=== PATIENT | female | born 1960 | race Caucasian/White ===

== ENCOUNTER 2016-12-08 20:00 | Inpatient (IN) ==
[2016-12-08] MEDS ORDERED: MORPHINE IM ONE (20:27)
[2016-12-08] MEDS ORDERED: ZOFRAN ODT PO ONE (20:27)
[2016-12-08] MEDS ORDERED: MOTRIN PO ONE (20:28)
--- NOTE | 2016-12-08 20:32 | PROVIDER DOCUMENTATION ---
HPI-Abdominal Pain/GI Problem - General Chief Complaint: UTI Symptoms Stated Complaint: ABD PAIN, V/D Time Seen by Provider: 12/08/16 20:23 Source: patient Allergies/Adverse Reactions: Patient Allergies Allergy/AdvReac Type Severity Reaction Status Date / Time hydrocodone bitartrate * Allergy Mild HIVES Verified 12/08/16 21:03 [From Lortab] Home Medications: Home Medication List Medication Instructions Recorded Confirmed Last Taken Type Aspirin 325 mg PO DAILY 10/28/12 12/09/16 12/08/16 09:00 History Omeprazole [Prilosec] 20 mg PO DAILY@0700 10/28/12 12/09/16 12/08/16 09:00 History Levofloxacin [Levaquin] 500 mg PO DAILY #15 tablet 12/18/16 Unknown Rx - History of Present Illness-ABD Nature of Presenting Problems: 56 y/o Wf c/o abdominal pain, that feels severe to her "I would rather be shot and put down right now than feel this way." Reports a fever of 104F that began at 1600. pain began at around 1000 today and has increased in intensity. It will be in the suprapubic region, radiates to the back, associated with nasuea and vomiting. No changes in BM. Tried AZOs otc without relief. Review of Systems - Adult - REVIEW OF SYSTEMS - ADULT Constitutional: reports: see HPI, chills, fever, fatique Eyes: reports: no symptoms reported. denies: decreased vision, blurred vision, double vision, eye pain Ears, Nose, Mouth & Throat: reports: no symptoms reported. denies: ear pain, nose pain, throat pain Cardiovascular: reports: no symptoms reported. denies: chest pain, irregular heart rate, palpitations Respiratory: reports: no symptoms reported. denies: cough, shortness of breath , wheezing Gastrointestinal: reports: see HPI, abdominal pain, nausea, vomiting Genitourinary: reports: see HPI, dysuria, frequency. denies: discharge, flank pain, hesitency, urgency Musculoskeletal: reports: see HPI, back pain. denies: bone pain, muscle aches Integumentary: reports: no symptoms reported. denies: rash Neurological: reports: no symptoms reported. denies: headache/migraines Psychiatric: reports: no symptoms reported Endocrine: reports: no symptoms reported Hematologic/Lymphatic: reports: no symptoms reported Allergic/Immunologic: reports: no symptoms reported All Other Systems: Reviewed and Negative Past History - Adult - PAST MEDICAL HISTORY-ADULT Review of Records: reports: Old Records Reviewed, Nursing Assessment Review, Medications Reviewed, Social history reviewed & non-contributory. Major Childhood Illnesses: reports: denies history Cardiovascular: reports: denies history Respiratory: reports: denies history Gastrointestinal: reports: denies history Obstetrical/Gynecological: reports: denies history Genitourinary: reports: denies history Musculoskeletal: reports: denies history Neurological: reports: denies history Endocrine/Immune: reports: denies history Other Conditions: reports: denies history - IMMUNIZATION STATUS Childhood Immunizations: See Nurse Assessment Flu Vaccine: See Nurse Assessment - FAMILY HISTORY Family History: reviewed, not pertinent Physical Exam-General - PHYSICAL EXAM-ADULT Initial Vital Signs Reviewed: Yes - CONSTITUTIONAL General Appearance: appears well, alert, no apparent distress - EYES Eyes: PERRL/EOMI, pink conjunctivae - HEAD, EARS, NOSE, MOUTH & THROAT HENMT: normocephalic/atraumatic, moist mucous membranes, normal ENT inspection - NECK Neck: non-tender, full range of motion, supple, normal inspection - RESPIRATORY Respiratory: chest non-tender, lungs clear, normal breath sounds, no pleuratic chest pain, no respiratory distress, no accessory muscle use. negative: respiratory distress, decreased breath sounds, accessory muscle use, crackles, rales, rhonchi, wheezing - CARDIOVASCULAR Cardiovascular: normal peripheral pulses, regular rate, rhythm - GASTROINTESTINAL (ABDOMEN) Abdominal Exam: normal bowel sounds, soft, no organomegaly, no pulsatile mass, tenderness. negative: abdominal bruit, abnormal bowel sounds, distended, guarding, rigid, rebound - LYMPHATIC Lymphatic: no adenopathy - MUSCULOSKELETAL Back Exam: normal inspection, no CVA tenderness, no vertebral tenderness. negative: CVA tenderness Extremity: normal range of motion, non-tender - SKIN Integumentary: normal color, normal turgor, warm/dry - NEUROLOGIC Neurologic: grossly normal, no motor/sensory deficits - PSYCHIATRIC Psych/Mental Status: normal mood/affect, normal thought content, normal thought process, oriented x 3 Progress - PLAN OF CARE/RESULTS Progress/Plan/Lab Results: Vital Signs - 8 hr 12/08/16 20:11 Temperature 99.4 F Pulse Rate 105 H Respiratory Rate 18 Blood Pressure 153/78 O2 Sat by Pulse Oximetry 100 Orders Category Date Time Status AMYLASE [CHEM] Stat Lab 12/08/16 20:26 Uncollected CBC WITH ELECTRONIC DIFF [HEME] Stat Lab 12/08/16 20:26 Uncollected COMPREHENSIVE METABOLIC PANEL [CHEM] Stat Lab 12/08/16 20:26 Uncollected LIPASE [CHEM] Stat Lab 12/08/16 20:26 Uncollected UA NIMS W/REFLEX CULT [URINALYSIS] Stat Lab 12/08/16 20:26 Uncollected URINE DRUG SCREEN Stat Lab 12/08/16 20:26 Uncollected Result Diagrams: 12/19/16 05:17 12/18/16 05:29 - CHANGE OF SHIFT REPORT (ED Provider) Report Given and Care Transferred to:: Dr. Prince MD Time of Transfer: 20:47 Items Pending: Labs Comment: stable Departure - Departure Time of Disposition Decision: 00:40 DIAGNOSIS: Perforated abdominal viscus Disposition: ADMITTED INPATIENT 09 Certified Medical Emergency: Emergent Condition: Stable - Critical Care Note This patient required my direct & personal management of CC.: Yes Total Time (mins): 30 Critical Care Statement: This patient required my direct personal management to treat or rule out processes, the absence of which, could potentiallly result in sudden, clinically significant life or limb threatening deterioration. Attestation - Physician/ CHARLES Attestation Patient care was provided by Advanced Practice Provider:: Yes Advanced Practice Provider:: Rosemary Rodriguez Advanced Practice Provider documentation review:: The Mid-level provider documentation, treatment plan and medical decision making was reviewed by the physician who agrees with all treatment and medical decision making by the [facility].
[2016-12-08 20:48] LABS: URINE CULTURE NEEDED? NO; URINE MICRO REVIEW NEEDED? NO; URINE SOURCE CLEAN CATCH
[2016-12-08 20:50] LABS: BILIRUBIN URINE NEGATIVE (NEGATIVE); BLOOD URINE SMALL (NEGATIVE); COLOR YELLOW; GLUCOSE URINE NEGATIVE (NEGATIVE); LEUKOCYTES URINE NEGATIVE (NEGATIVE); NITRITE URINE NEGATIVE (NEGATIVE); PROTEIN URINE TRACE mg/dL (NEGATIVE); SP GRAVITY URINE 1.022; TURBIDITY URINE HAZY (CLEAR); UROBILINOGEN URINE NORMAL (NORMAL)
[2016-12-08 20:51] LABS: UR EPITHELIAL CELLS <10 /HPF (<10); URINE BACTERIA NEGATIVE /HPF; URINE RBC <10 /HPF (<10); URINE WBC <10 /HPF (<10)
[2016-12-08 21:01] LABS: UR AMPHETAMINES QUAL NONE DETECTED (NONE DETECT); UR BARBITUATES QUAL NONE DETECTED (NONE DETECT); UR BENZODIAZEPIN QUAL NONE DETECTED (NONE DETECT); UR CANNABINOIDS QUAL NONE DETECTED (NONE DETECT); UR COCAINE QUAL NONE DETECTED (NONE DETECT); UR METHADONE QUAL NONE DETECTED (NONE DETECT); UR OPIATES QUAL NONE DETECTED (NONE DETECT); UR OXYCODONE QUAL NONE DETECTED (NONE DETECT); UR PCP QUAL NONE DETECTED (NONE DETECT)
[2016-12-08 22:14] LABS: BASO% 0.1 % (0.0-0.8); HEMATOCRIT 41.8 % (37.0-47.0); HEMOGLOBIN 13.8 g/dL (12.0-16.0); LYMPH# 0.97 X1000 (1.2-3.4); LYMPH% 3.3 % (20.5-51.1); MANUAL DIFF NEEDED? NO; MCH 30.1 PG (27-31); MCV 91.1 FL (81-99); MONO# 1.49 X1000 (0.11-0.59); MPV 10.9 FL (7.4-10.4); NEUT% 91.6 % (42.2-75.2); PLT 256 X1000 (130-400); RBC 4.59 XMIL (4.2-5.4)
[2016-12-08 22:27] LABS: AGAP 18; ALKALINE PHOSPHATASE 106 U/L (32-104); AMYLASE 48 U/L (20-200); BUN 12 mg/dL (8-22); CALCIUM 8.9 mg/dL (8.8-10.2); CHLORIDE 100 mmol/L (98-107); COSMO 276; GOT 20 U/L (10-30); GPT 13 U/L (10-36); POTASSIUM 4.2 mmol/L (3.5-5.1); SODIUM 138 mmol/L (136-145); TCO2 20 mmol/L (25-35); TOTAL BILIRUBIN 0.97 mg/dL (0.20-1.00); TOTAL PROTEIN 7.5 g/dL (6.3-8.3)
[2016-12-08] MEDS ORDERED: FLAGYL 500 MG/NS 500 MG/100 ML IVPB IV ONE (22:52)
[2016-12-08] MEDS ORDERED: ZOSYN 3.375 GM/NS 3.375 GM/50 ML IVPB IV ONE (22:52)
[2016-12-09] MEDS: TORADOL IV SCH ×4 (00:20→17:36)
[2016-12-09] MEDS: PROTONIX IV SCH (00:21)
[2016-12-09] MEDS: ZOFRAN IV PRN ×2 (00:26→23:04)
[2016-12-09] MEDS ORDERED: SODIUM CHLORIDE 0.9% INJ SCH (00:28)
[2016-12-09] MEDS: MORPHINE IV PRN ×6 (00:30→23:04)
[2016-12-09] MEDS: NS 1,000 ML IV SCH ×4 (01:05→23:04)
--- NOTE | 2016-12-09 01:22 | HISTORY AND PHYSICAL ---
PRIMARY CARE PHYSICIAN: Dr. Pernell Healy. CHIEF COMPLAINT: Abdominal pain. HISTORY OF PRESENT ILLNESS: This is a 56-year-old, female, with past medical history of diverticulitis in the past, and gastroesophageal reflux disease, who presented to the emergency department complaining of abdominal pain. Patient reports she was feeling sick since yesterday, feeling nauseated, and today she has vomited 3 times with some diarrhea and severe abdominal pain in the left lower quadrant, that was getting worse and worse progressively, so she decided to come to the ER. Also, she noticed for 1 week some burning upon urination. So, initially she told that she was having a urinary tract infection. Here in the ER because of abdominal pain, we ordered a CT of the abdomen and pelvis, which basically showed acute diverticulitis, and there is also presence of free air. Also, urinalysis is dirty, so patient is going to be admitted for further evaluation and treatment. PAST MEDICAL HISTORY: Gastroesophageal reflux disease. PAST SURGICAL HISTORY: Hysterectomy. SOCIAL HISTORY: She lives with her and she does not smoke, she quit smoking 5 years ago. She admits to drinking alcohol socially, and she denies using any illicit drugs. REVIEW OF SYSTEMS: Eleven systems were reviewed and all symptoms are related to H P. ALLERGIES: Patient is allergic to [place], but not to Tylenol. FAMILY HISTORY: Noncontributory. PHYSICAL EXAMINATION: VITAL SIGNS: Temperature 99.4, heart rate 91, respiratory rate 18, blood pressure 143/76, O2 saturation 100% on room air. GENERAL: This is an obese female, lying in bed, in no acute distress. HEENT: Head is normocephalic, atraumatic. Anicteric sclerae and pale conjunctivae. Mucous membranes moist. NECK: Supple. No JVD noted. No carotid bruits. No lymphadenopathy. No thyromegaly. CARDIOVASCULAR: S1-S2 heard. No murmurs, gallops, or rubs. Regular rate and rhythm. RESPIRATORY: Clear bilaterally to auscultation. No work of breathing or using accessory muscles. ABDOMEN: Soft. Bowel sounds present. No organomegaly. Abdomen is tender to palpation all over the abdomen, most predominant in the left lower quadrant, because there are no signs peritoneal irritation. Bowel sounds distant, but present. NEUROLOGICAL: Patient is alert and oriented x3. EXTREMITIES: Moves 4 extremities. LABORATORY DATA: White cell count 29.77, hemoglobin 13.3, hematocrit 41.8, platelets 256,000. BMP unremarkable with dirty urinalysis. ASSESSMENT AND PLAN: 1. Acute diverticulitis. 2. Urinary tract infection. 3. . PLAN: 1. The patient is being admitted to the hospital for an episode of diverticulitis. At this time, we are going to admit to the hospital, initiate IV fluids, and pain medication. We are going to also start Zosyn IV as well. Also, because of this recurrent diverticulitis, because of the second episode of this problem, we are going go consult GI, who probably may recommend to have a colonoscopy as an outpatient. 2. For urinary tract infection we will continue with Zosyn, same medication. 3. Gastroesophageal reflux disease. We will continue with Protonix. 4. Further recommendations to follow according to the clinical situation of the patient. cc: Vince Barroso MD
[2016-12-09] MEDS: ZOSYN 3.375 GM/NS 3.375 GM/50 ML IVPB IV SCH ×4 (05:17→23:04)
--- NOTE | 2016-12-09 05:23 | CONSULTATION ---
DATE OF CONSULTATION: 12/09/2016 REQUESTING PHYSICIAN: Dr. Carpenter with the hospitalist service. REASON FOR CONSULTATION: Consult concerning possible perforated diverticulitis. HISTORY OF PRESENT ILLNESS: A 56-year-old, female with a past history of diverticulitis and gastroesophageal reflux, and morbid obesity, presenting with complaints of abdominal pain. She reports that she has been feeling sick since yesterday and vomited 3 times and had some diarrhea with severe abdominal pain in the left lower quadrant. She says it had been getting progressively worse until she presented to the ER where she has had some improvement. She also reports some burning when she urinates. She had a CT scan done in the ER which showed acute diverticulitis and some free air noted. The patient was admitted by the hospitalist service for further evaluation. She was started on antibiotics. The patient reports some ease in her pain. Describes the pain as being worse in the left lower quadrant and in the epigastric region. Again, she reports some improvement in her pain since admission. I was asked to evaluate the patient for opinion. She initially thought she was having urinary tract infection symptoms, thought it was a kidney infection. PAST MEDICAL HISTORY: 1. History of diverticulitis. 2. History of gastroesophageal reflux disease. PAST SURGICAL HISTORY: Includes hysterectomy. MEDICATIONS: Home medications include Prilosec and aspirin. ALLERGIES: Include hydrocodone. FAMILY HISTORY: Reviewed with patient and noncontributory. SOCIAL HISTORY: Former smoker. Drinks alcohol socially. Denies any illicit drugs. REVIEW OF SYSTEMS: A full 10 point review of systems was obtained and negative as specified in the HPI. PHYSICAL EXAMINATION: Vital Signs: Patient is currently afebrile. Temperature 99.2 degrees. She has been afebrile in her hospitalization. Pulse currently regular at 86. Respiratory nonlabored at 16. Blood pressure 125/54. O2 saturation 98% on room air. General Examination: No acute distress but appears uncomfortable. female, looks stated age. BMI was reported to be above 41. HEENT: Normocephalic and atraumatic. Pupils equal, round, and react to light. Mucous membranes moist. Oropharynx benign. Neck: Supple. Trachea midline. Cardiovascular: Regular rate and rhythm. Lungs: Grossly clear. Abdomen: Obese. Tender to palpation in the left lower quadrant with some mild guarding and some mild diffuse tenderness diffusely. At this time, I would not give her any peritoneal signs besides some mild guarding localized in the left lower quadrant. Extremities: Moves all extremities. Neurologic: Grossly intact. Skin: No signs of jaundice. Vascular: All extremities perfused. LABORATORY DATA: From yesterday, white blood cell count was 29.7, hematocrit 41.8, platelet count 256,000. CMP reviewed. CT scan independently reviewed and radiology report reviewed. Patient does have some free air and some inflammation around her sigmoid colon. There is some fluid around the cecum which may represent developing abscess. ASSESSMENT/PLAN: A 56-year-old, female with morbid obesity and potential for perforated diverticulitis. 1. Perforated diverticulitis. At this time, the patient does not appear septic. She is on appropriate antibiotic coverage. I did not give her peritonitis on examination. I discussed with her the options including surgery and told her that surgery would likely involve a colostomy. I told the option of monitoring her with antibiotics. She preferred to monitor with antibiotics at this time. I suspect, given the fact she is not tachycardic or otherwise septic appearing, that this is safe at this time. Her morbid obesity does complicate her surgical, perioperative care. It does increase her risk for wound infections postoperatively. We will continue to monitor with you. Hopefully, we can manage her nonoperatively. We will likely need to repeat a CT scan in the next 48-72 hours if we continue to treat her nonoperatively, to monitor any change. 2. Hospitalist to continue to monitor and evaluate her for her medical issues. cc: Byron Unger MD
--- NOTE | 2016-12-09 05:41 | EKG Report ---
Test Performed on : 12/09/2016 00:04:40 AM Test Reason : Blood Pressure : / mmHG Vent. Rate : 085 BPM Atrial Rate : 085 BPM P-R Int : 144 ms QRS Dur : 068 ms QT Int : 348 ms P-R-T Axes : 003 026 009 degrees QTc Int : 414 ms Normal sinus rhythm. Normal ECG When compared with ECG of 28-OCT-2012 19:12, premature atrial complexes. are no longer present Unconfirmed Result
--- NOTE | 2016-12-09 10:23 | Diag Imaging Result Document ---
PROCEDURE NAME: CT ABD/PELVIS W/ IV CONT ONLY - 12/08/2016 CT OF THE ABDOMEN WITH INTRAVENOUS CONTRAST AND CLARITY: FINDINGS: There is some fibrotic appearing opacity in the posterior medial right lower lobe. A similar appearance is present in the inferior lingula. The liver is hypodense suggesting fatty change. There is pneumoperitoneum. There is no evidence of abdominal aortic aneurysm. The mesenteric arteries are patent. There is no gas in the portal system. The liver is somewhat hypodense suggesting fatty change. There are no gallstones. The spleen is not enlarged. The stomach is not terribly distended and the possibility of some mucosal thickening cannot be excluded. The duodenum is fairly normal in appearance and there is no evidence of gas around the duodenum. Fairly large pocket of free air is present in the left upper quadrant adjacent to the splenic flexure of the colon. There is some fullness of both renal pelves particularly the left, however no evidence of ureteral stones or other obstruction is present. There is a fairly large amount of fluid present in the ascending colon. CT OF THE PELVIS WITH INTRAVENOUS CONTRAST: FINDINGS: The appendix is normal in appearance. There is gas adjacent to the sigmoid colon in the fat posteriorly and multiple diverticula are present. No evidence of abscess is present. The urinary bladder is unremarkable. There has been hysterectomy. IMPRESSION: 1. Pneumoperitoneum possibly as a result of a perforated sigmoid diverticulum. 2. Hepatic steatosis. 3. Possible left UPJ stenosis.
[2016-12-10] MEDS: TORADOL IV SCH ×4 (00:17→18:20)
[2016-12-10] MEDS: SODIUM CHLORIDE 0.9% INJ SCH (00:17)
[2016-12-10] MEDS: PROTONIX IV SCH (00:17)
[2016-12-10] MEDS: NS 1,000 ML IV SCH ×5 (00:43→20:05)
[2016-12-10] MEDS: MORPHINE IV PRN ×4 (03:45→23:53)
[2016-12-10 05:39] LABS: BASO% 0.1 % (0.0-0.8); IMM GRAN# 0.07 X1000 (0.0-0.04); IMM GRAN% 0.4 % (0.0-0.5); LYMPH% 3.1 % (20.5-51.1); MANUAL DIFF NEEDED? YES; MCH 29.9 PG (27-31); MCHC 32.5 g/dL (33-37); MONO# 0.82 X1000 (0.11-0.59); MONO% 4.2 % (1.7-9.3); MPV 10.5 FL (7.4-10.4); NEUT% 92.2 % (42.2-75.2); PLT 216 X1000 (130-400); RBC 4.35 XMIL (4.2-5.4)
[2016-12-10 05:48] LABS: CALCIUM 8.2 mg/dL (8.8-10.2); POTASSIUM 4.4 mmol/L (3.5-5.1)
[2016-12-10 05:59] LABS: BANDS 6 % (0-1); LYMPHS 4 % (21-51); MONO 4 % (1-9)
[2016-12-10] MEDS: ZOSYN 3.375 GM/NS 3.375 GM/50 ML IVPB IV SCH ×4 (06:04→23:53)
--- NOTE | 2016-12-10 06:20 | PROGRESS NOTE ---
DATE: 12/10/2016 SUBJECTIVE: Patient says she is feeling better than she did on Friday. OBJECTIVE: Vital Signs: The patient is currently afebrile. Her vital signs have been stable. General Examination: No acute distress. HEENT: Normocephalic and atraumatic. Pupils equal, round, react to light. Mucous membranes moist. Oropharynx benign. Neck: Supple. Trachea midline. Cardiovascular: Regular rate and rhythm. Lungs: Grossly clear. Abdomen: Obese but soft. Less tender compared to previous examination. No peritoneal signs. Extremities: Moves all extremities. Neurologic: Grossly intact. Skin: No signs of jaundice. Vascular: All extremities perfused. Laboratory: White blood cell count is 19 which is down from 29. ASSESSMENT/PLAN: A 56-year-old, female with perforated diverticulitis. Perforated diverticulitis. At this time, I am okay for the patient to have sips of clears. We will keep her on intravenous antibiotics. Will likely need to repeat a CT scan in 24-48 hours to monitor for any changes. Clinically, I think we can avoid surgical intervention on this patient. cc: Byron Unger MD
--- NOTE | 2016-12-10 08:36 | Diag Imaging Result Document ---
PROCEDURE NAME: US RENAL 2 (RETROPER) COMPLETE - 12/10/2016 RENAL ULTRASOUND: COMPARISON: None available. FINDINGS: The kidneys are grossly normal in echotexture with no discrete renal mass or hydronephrosis. The right kidney measures 11.4 cm and the left kidney measures 11.8 cm in the greatest longitudinal axes. Both renal cortices measure up to 1.1 cm in thickness. The urinary bladder is only slightly distended and is grossly unremarkable, otherwise. IMPRESSION: Essentially unremarkable renal ultrasound.
--- NOTE | 2016-12-10 14:23 | PROGRESS NOTE ---
DATE: 12/10/2016 SUBJECTIVE: Patient reports less abdominal pain. Denies any fever, chills, nausea, vomiting. OBJECTIVE: Vitals: Temperature 99.0 degrees, heart rate 95, respiratory rate 14, blood pressure 137/67, O2 saturation 97% on room air. General Examination: This is a 56-year-old, female lying in bed, in no acute distress. HEENT: Head is normocephalic, atraumatic. Anicteric sclerae and pale conjunctivae. Mucous membranes moist. Neck: Supple. No JVD noted. No carotid bruits. No lymphadenopathy. No thyromegaly. Cardiovascular: S1, S2 heard. No murmurs, gallops, or rubs. Regular rate and rhythm. Respiratory: Clear bilaterally to auscultation. No work of breathing or using accessory muscles. Abdomen: Soft. Mildly tender to palpation in the left lower quadrant but definitely better in comparing with admission. No signs of peritoneal irritation. Bowel sounds present. No organomegaly. Extremities: No clubbing, cyanosis, or edema. Peripheral pulses present in both legs. Neurological: Patient is alert and oriented x3. Able to move her extremities. Cranial nerves 2-12 grossly normal. LABORATORY DATA: White cell count 19.44, hemoglobin 13.0, hematocrit 40.0, platelets 216,000. BMP unremarkable. ASSESSMENT AND PLAN: Acute diverticulosis. Patient was admitted for abdominal pain and we found on the x-ray she had sigmoid diverticulitis and the CT of the abdomen showed pneumoperitoneum. General Surgery was consulted and they think that the patient needs medical management only. They have seen this patient today and they think that we need to repeat the CT scan of the abdomen to make sure that she is not getting worse. Clinically, she is doing fine with less abdominal pain and on the physical examination disclosed an abdomen that is definitely more softer so we are going to proceed with exam tomorrow and we will go from there. White cell count is also getting better from 20,000 on admission to 19,000 today. She is not nauseated and she is taking sips of water with no vomiting at all. Urine culture has returned negative for mixed ankush so at the time we are going to continue with Zosyn. We will check CBC tomorrow and we will see what the CT of the abdomen and pelvis shows tomorrow. cc: Vince Barroso MD
[2016-12-11] MEDS: PROTONIX IV SCH (01:21)
[2016-12-11] MEDS: SODIUM CHLORIDE 0.9% INJ SCH (01:21)
[2016-12-11] MEDS: TORADOL IV SCH ×4 (01:22→17:30)
[2016-12-11] MEDS: MORPHINE IV PRN ×4 (04:45→20:41)
[2016-12-11 05:39] LABS: BASO% 0.1 % (0.0-0.8); EOS# 0.03 X1000 (0.0-0.7); EOS% 0.2 % (0.0-10.0); HEMATOCRIT 36.8 % (37.0-47.0); HEMOGLOBIN 11.9 g/dL (12.0-16.0); IMM GRAN# 0.04 X1000 (0.0-0.04); IMM GRAN% 0.3 % (0.0-0.5); LYMPH# 0.96 X1000 (1.2-3.4); LYMPH% 6.1 % (20.5-51.1); MANUAL DIFF NEEDED? YES; MCH 29.5 PG (27-31); MCHC 32.3 g/dL (33-37); MCV 91.1 FL (81-99); MONO# 0.95 X1000 (0.11-0.59); MPV 10.7 FL (7.4-10.4); NEUT% 87.3 % (42.2-75.2); PLT 212 X1000 (130-400); RBC 4.04 XMIL (4.2-5.4)
[2016-12-11 05:47] LABS: AGAP 15; BUN 17 mg/dL (8-22); CALCIUM 8.3 mg/dL (8.8-10.2); CHLORIDE 108 mmol/L (98-107); COSMO 283; SODIUM 141 mmol/L (136-145); TCO2 18 mmol/L (25-35)
--- NOTE | 2016-12-11 06:14 | PROGRESS NOTE ---
DATE: 12/11/2016 SUBJECTIVE: Patient says she is feeling better. OBJECTIVE: Vital Signs: Patient is currently afebrile. Her vital signs are stable. General Examination: No acute distress. HEENT: Normocephalic and atraumatic. Pupils equal, round, react to light. Mucous membranes moist. Oropharynx benign. Neck: Supple. Trachea midline. Cardiovascular: Regular rate and rhythm. Lungs: Grossly clear. Abdomen: Soft. Considerably less tender compared to previous examinations. No peritoneal signs. Extremities: Moves all extremities. Neurologic: Grossly intact. Skin: No signs of jaundice. Vascular: All extremities perfused. Laboratory: White blood cell count now at 15 which is down from 29. ASSESSMENT/PLAN: A 56-year-old, female with perforated diverticulitis. Perforated diverticulitis. At this time, I would agree with a repeat CT scan today. If it shows improvement, we will consider advancing her diet. Still would to like to keep her on intravenous antibiotics given her leukocytosis but hopefully we can transition her over to oral antibiotics here in the near future. cc: Byron Unger MD
[2016-12-11 06:24] LABS: BANDS 8 % (0-1); LYMPHS 4 % (21-51)
[2016-12-11] MEDS: ZOSYN 3.375 GM/NS 3.375 GM/50 ML IVPB IV SCH ×4 (06:49→23:30)
[2016-12-11] MEDS: NS 1,000 ML IV SCH ×4 (08:55→20:41)
--- NOTE | 2016-12-11 10:21 | Diag Imaging Result Document ---
PROCEDURE NAME: ABDOMEN/PELVIS W/CONTRAST - 12/11/2016 CT ABDOMEN AND PELVIS WITH INTRAVENOUS CONTRAST, 12/11/2016: A CT dose reduction protocol was used. COMPARISON: 12/08/2016. FINDINGS: Aside from some slight linear atelectasis, the lung bases are clear. Heart size remains normal. There is mild pneumoperitoneum similar to prior. In the right lower quadrant, there is a gas and fluid collection measuring 10 x 7 cm axially in its maximum dimension. There is enteric contrast throughout the distal ileum and colon. However, there is no contrast in this collection. This is concerning for a pericecal abscess. Contrast fills an apparently normal vermiform appendix as well. There are numerous small, presumably reactive mesenteric lymph nodes at the right lower quadrant. The distal colon is fairly decompressed but not obstructed. There are probably some small diverticula of the sigmoid colon but these are not specifically inflamed. The rectum is normal. Solid organs remain grossly normal. IMPRESSION: Persistent pneumoperitoneum. Apparent pericecal abscess. This is superficial and would be amenable to percutaneous catheter drainage. [facility]
[2016-12-11] MEDS: ATIVAN IV PRN ×2 (12:13→21:25)
--- NOTE | 2016-12-11 14:39 | Diag Imaging Result Document ---
PROCEDURE NAME: CT GUIDE ABD DRAINAGE W/CATH - 12/11/2016 CT-GUIDED CECAL ABSCESS DRAINAGE: A CT dose reduction protocol was used. COMPARISON: CT from earlier, 12/11/2016. TECHNIQUE: The risks and benefits of the procedure were discussed with the patient. All questions were answered. Written and verbal informed consent was obtained. Overlying skin was prepped and draped in sterile fashion. Anesthesia was achieved with injection of about 20 mL of 1% lidocaine. Using intermittent CT guidance, the 12-Setswana 15 cm drain was advanced into the pericecal fluid collection in the right lower quadrant. Repeated aspirations were made with a large syringe. About 400 mL of pus was drained, as well as extensive gas. The catheter was left in place. This was anchored to the skin, and a drainage bag was placed. IMPRESSION: Successful and uncomplicated CT-guided cecal abscess drainage. [facility]
--- NOTE | 2016-12-11 15:22 | PROGRESS NOTE ---
DATE: 12/11/2016 SUBJECTIVE: Patient reports still mild abdominal pain in the left lower quadrant. Denies any fever, chills, nausea, vomiting. OBJECTIVE: Vital Signs: Temperature 98.7, heart rate 92, respiratory rate 16, blood pressure 137/74, O2 saturation 98% on room air. General Examination: This is a 56-year- old, female lying in bed, in no acute distress. HEENT: Head is normocephalic, atraumatic. Anicteric sclerae and pale conjunctivae. Mucous membranes moist. Neck: Supple. No JVD. No thyromegaly. Cardiovascular Examination: S1, S2 heard. No murmurs, gallops, or rubs. Regular rate and rhythm. Respiratory: Clear bilaterally to auscultation. No work of breathing or using accessory muscles. Abdomen: Soft, mildly tender to palpation in the left lower quadrant. There are no signs of peritoneal irritation. Bowel sounds present. No organomegaly. Extremities: No clubbing, cyanosis, or edema. Peripheral pulses present in both legs. Neurologic exam: Patient alert, oriented x3. Able to move her extremities. Cranial nerves 2-12 grossly normal. LABORATORY DATA: That is remarkable for white cell count 15.77, hemoglobin 11.9. BMP unremarkable. CT of abdomen and pelvis showed persistent pneumoperitoneum with apparent pericecal abscess that is superficial. ASSESSMENT AND PLAN: 1. Acute diverticulitis. Patient admitted for abdominal pain and acute sigmoid diverticulitis. CT showed pneumoperitoneum. Evaluated initially was surgery. They decided to continue with medical treatment. The repeated CT from today shows still pneumoperitoneum with more clear abscess in the sigmoid, that is not amenable for drainage. Dr. Unger is involved in the case. He has consulted Interventional Radiology. Procedure, that is drainage by CT guidance of this lesion showed approximately 400 mL of purulent material and they have left the catheter. I think this patient for now, is going to continue to improve. As we mentioned before, no fever or chills since she is in the hospital. Urine cultures negative. We are going to continue with Zosyn. We are going to check CBC tomorrow. We will go from there. cc: MD RETA Lau
[2016-12-12] MEDS: PROTONIX IV SCH ×2 (00:03→22:16)
[2016-12-12] MEDS: SODIUM CHLORIDE 0.9% INJ SCH ×2 (00:03→22:17)
[2016-12-12] MEDS: MORPHINE IV PRN ×2 (01:50→07:59)
[2016-12-12] MEDS: NS 1,000 ML IV SCH ×4 (04:18→17:21)
[2016-12-12] MEDS: ZOSYN 3.375 GM/NS 3.375 GM/50 ML IVPB IV SCH ×4 (05:56→22:16)
[2016-12-12] MEDS: TORADOL IV SCH ×4 (05:57→17:21)
[2016-12-12 06:09] LABS: MANUAL DIFF NEEDED? NO
--- NOTE | 2016-12-12 06:10 | PROGRESS NOTE ---
DATE: 12/12/2016 SUBJECTIVE: Patient had a CT scan done yesterday that showed a consolidating abscess. She underwent CT-guided drainage yesterday which, by report, was uncomplicated. They drained about 400 mL of pus per the report. The patient says she is doing well at this moment, feeling better. OBJECTIVE: Vital Signs: Patient is currently afebrile. Her vital signs are stable. General Examination: No acute distress. Alert, interactive, female, looks stated age. HEENT: Normocephalic, atraumatic. Pupils equal, round, react to light. Mucous membranes moist. Oropharynx benign. Neck: Supple. Trachea midline. Cardiovascular: Regular rate and rhythm. Lungs: Grossly clear. Abdomen: Soft. Considerably less tender to palpation from previous days. ADDIE drain placed by radiology in the right lower quadrant has purulence in the suction tubing. Extremities: Moves all extremities. Neurologic: Grossly intact. Skin: No signs of jaundice. Vascular: All extremities perfused. Laboratory: Currently pending. ASSESSMENT AND PLAN: A 56-year-old, female with perforated diverticulitis. Perforated diverticulitis. At this time, she is clinically doing well. Her labs are pending but her white blood cell count has been trending down. I would recommend continued intravenous antibiotics given the purulence in the Corky-Walters drain. I will advance her to a gastrointestinal soft diet. She is tolerating her clear liquids. At this time, would like to repeat a CT scan, maybe in 24-48 hours to see how well the drainage is doing on her. She did have a significant amount of purulence drained. I would like to keep her on intravenous antibiotics at least until her white blood cell count is within the normal range. Otherwise, I think we can avoid an operation on this lady. cc: Byron Unger MD
[2016-12-12 06:15] LABS: BASO% 0.1 % (0.0-0.8); EOS# 0.04 X1000 (0.0-0.7); EOS% 0.3 % (0.0-10.0); HEMATOCRIT 36.3 % (37.0-47.0); IMM GRAN# 0.08 X1000 (0.0-0.04); IMM GRAN% 0.6 % (0.0-0.5); LYMPH# 0.87 X1000 (1.2-3.4); LYMPH% 6.3 % (20.5-51.1); MCH 29.7 PG (27-31); MCHC 33.1 g/dL (33-37); MCV 89.9 FL (81-99); MONO# 1.07 X1000 (0.11-0.59); MONO% 7.7 % (1.7-9.3); PLT 269 X1000 (130-400); RBC 4.04 XMIL (4.2-5.4)
[2016-12-12 06:41] LABS: AGAP 12; BUN 16 mg/dL (8-22); CALCIUM 8.1 mg/dL (8.8-10.2); CHLORIDE 108 mmol/L (98-107); COSMO 279; POTASSIUM 3.6 mmol/L (3.5-5.1); SODIUM 139 mmol/L (136-145); TCO2 19 mmol/L (25-35)
[2016-12-12] MEDS: ZOFRAN IV PRN (11:15)
--- NOTE | 2016-12-12 13:11 | PROGRESS NOTE ---
DATE: 12/12/2016 SUBJECTIVE: Patient reported still having mild abdominal pain in the left lower quadrant. She denies any fever or chills. OBJECTIVE: Vital Signs: Temperature 98.1 degrees, heart rate 87, respiratory rate 16, blood pressure 138/69 and O2 saturation 98% on room air. General Examination: This is a 56-year-old, female, lying in bed in no acute distress. HEENT: Head is normocephalic, atraumatic. Anicteric sclerae and pale conjunctivae. Mucous membranes moist. Neck: Supple. No JVD noted. No carotid bruits. No lymphadenopathy. No thyromegaly. Cardiovascular exam: S1 and S2 heard. No murmurs, gallops, or rubs. Regular rate and rhythm. Respiratory exam: Clear bilaterally to auscultation. No work of breathing or using accessory muscles. Abdomen: Soft, mild, nontender to palpation in the left lower quadrant. In the right lower quadrant, there is a catheter that is draining a tiny amount of secretion. There are no signs of peritoneal irritation. Bowel sounds present. No organomegaly. Extremities: No clubbing, cyanosis, or edema. Peripheral pulses present in both legs. Neurological exam: Patient is alert and oriented x3. Able to move 4 extremities. LABORATORY DATA: White cell count 13.98, hemoglobin 12.0, hematocrit 36.3, platelets 269. BMP unremarkable. ASSESSMENT: 1. Acute diverticulitis. 2. Sigmoid abscess status post CT-guided percutaneous drainage. PLAN: The patient has been draining this sigmoid abscess yesterday of 400 mL of purulent material has been removed. Since then the patient is feeling much better. She is still complaining of mild pain around that area, but no fever or chills noted. White cell continues to improve. At this point, we are going to continue with the same antibiotic medication. I plan to give this patient over the weekend and, most probably on Friday if this patient is doing fine, we will probably discharge her. At this point, because of the pain and medical condition, patient is not able to get any physical therapy. cc: Vince Barroso MD
[2016-12-12] MEDS ORDERED: NS 250 ML ONE (14:00)
[2016-12-12 14:24] LABS: INR 1.04
[2016-12-12] MEDS: PERCOCET-5 PO PRN ×2 (15:59→22:17)
[2016-12-13] MEDS: NS 1,000 ML IV SCH ×6 (01:09→21:34)
[2016-12-13] MEDS: PROTONIX IV SCH (02:12)
[2016-12-13] MEDS: ZOSYN 3.375 GM/NS 3.375 GM/50 ML IVPB IV SCH ×5 (05:01→23:21)
[2016-12-13] MEDS: PERCOCET-5 PO PRN ×3 (05:01→21:36)
[2016-12-13 06:14] LABS: BASO% 0.2 % (0.0-0.8); EOS# 0.11 X1000 (0.0-0.7); EOS% 0.5 % (0.0-10.0); HEMOGLOBIN 11.7 g/dL (12.0-16.0); IMM GRAN# 0.27 X1000 (0.0-0.04); IMM GRAN% 1.3 % (0.0-0.5); LYMPH# 1.04 X1000 (1.2-3.4); LYMPH% 5.1 % (20.5-51.1); MANUAL DIFF NEEDED? YES; MCH 29.5 PG (27-31); MCHC 33.4 g/dL (33-37); MCV 88.4 FL (81-99); MONO# 2.17 X1000 (0.11-0.59); MONO% 10.7 % (1.7-9.3); MPV 11.2 FL (7.4-10.4); NEUT% 82.2 % (42.2-75.2); PLT 286 X1000 (130-400); RBC 3.96 XMIL (4.2-5.4)
[2016-12-13 06:40] LABS: BANDS 14 % (0-1); LYMPHS 2 % (21-51); MONO 8 % (1-9)
--- NOTE | 2016-12-13 08:42 | PROGRESS NOTE ---
DATE: 12/13/2016 SUBJECTIVE: Patient doing well. She says she is overall improving. No major issues. She is tolerating a regular diet. OBJECTIVE: Vital Signs: Patient is currently afebrile. Her vital signs are stable. General Exam: No acute distress. Alert, interactive, female, looks stated age. HEENT: Normocephalic, atraumatic. Pupils equally round and reactive to light. Mucous membranes moist. Oropharynx benign. Neck: Supple. Trachea midline. Cardiovascular: Regular rate and rhythm. Lungs: Grossly clear. Abdomen: Soft, essentially nontender except for around the drain at this point. ADDIE drain has less purulence in it. Extremities: Moves all extremities well. Neurologic: Grossly intact. Skin: No signs of jaundice. Vascular: All extremities perfused. LABORATORY: Her white blood cell count is 20, which is up from 13. ASSESSMENT AND PLAN: A 56-year-old, female with perforated diverticulitis. 1. Perforated diverticulitis. At this time, patient is clinically doing well. Her white blood cell count has gone to 20 from 13, this maybe charter representative of an inflammatory response after the drain was placed. I suspect that we need to repeat her CBC in the morning. If it continues to increase, may need to consider repeat CT scan to evaluate any other acute process occurring, although clinically again she is much better than she was. 2. Given everything that were seen today, I would recommend continued IV antibiotics. 3. Dr. Howard will see the patient over the weekend while I am gone. cc: Byron Unger MD
[2016-12-13 10:28] LABS: BASO% 0.2 % (0.0-0.8); EOS# 0.13 X1000 (0.0-0.7); EOS% 0.6 % (0.0-10.0); HEMATOCRIT 34.3 % (37.0-47.0); HEMOGLOBIN 11.5 g/dL (12.0-16.0); IMM GRAN# 0.31 X1000 (0.0-0.04); IMM GRAN% 1.5 % (0.0-0.5); LYMPH# 1.29 X1000 (1.2-3.4); LYMPH% 6.3 % (20.5-51.1); MANUAL DIFF NEEDED? YES; MCH 29.6 PG (27-31); MCHC 33.5 g/dL (33-37); MCV 88.4 FL (81-99); MONO# 2.26 X1000 (0.11-0.59); MPV 11.1 FL (7.4-10.4); NEUT% 80.4 % (42.2-75.2); PLT 265 X1000 (130-400); RBC 3.88 XMIL (4.2-5.4)
[2016-12-13 10:39] LABS: BANDS 8 % (0-1); LYMPHS 6 % (21-51); MONO 6 % (1-9)
--- NOTE | 2016-12-13 16:35 | PROGRESS NOTE ---
DATE: 12/13/2016 SUBJECTIVE: The patient reports feeling better. No chills, no fever. OBJECTIVE: Vital Signs: Temperature 99.5 degrees, heart rate 90, respiratory rate 16, blood pressure 124/65, and O2 saturation 98% on room air. General: This a 56-year-old female, lying in bed, in no acute distress. HEENT: Head is normocephalic and atraumatic. Anicteric sclerae and pale conjunctivae. Mucous membranes moist. Neck: Supple. No JVD noted. No carotid bruits. No lymphadenopathy. No thyromegaly. Cardiovascular: S1 and S2 heard. No murmurs, gallops, or rubs. Regular rate and rhythm. Respiratory: Clear bilaterally to auscultation. No work of breathing or using accessory muscles. Abdomen: Soft, mildly tender to palpation in the left lower quadrant. In the right lower quadrant, there is a drainage catheter draining just a really tiny amount of secretion. No signs of peritoneal irritation. Bowel sounds present. No organomegaly. Extremities: No clubbing, cyanosis, or edema. Peripheral pulses present in both legs. Neurological: The patient is alert and oriented x3. Able to move 4 extremities. Cranial nerves 2 through 12 grossly normal. LABORATORY DATA: White cell count 20,000. ASSESSMENT: 1. Acute diverticulitis. 2. Sigmoid abscess, status post CT-guided percutaneous drainage. PLAN: The patient clinically is doing fine. Unfortunately, the white cell count has jumped up to 20,000. At this point, that could be secondary to the stress of the procedure versus a worsening infection. In any case, we are going to check CBC, and if white cell count is still elevated, we are going to scan this patient. If not, we will probably repeat exam on Friday to see how this patient is doing. Actually, there is not too much drainage coming from the area, so we will continue with the same management right now. cc: Vince Barroso MD
[2016-12-13] MEDS: TORADOL IV SCH ×2 (17:23→21:36)
[2016-12-13] MEDS: ATIVAN IV PRN ×2 (17:23→21:37)
[2016-12-14] MEDS: NS 1,000 ML IV SCH ×3 (00:58→22:27)
[2016-12-14] MEDS: SODIUM CHLORIDE 0.9% INJ SCH (01:13)
[2016-12-14] MEDS: TORADOL IV SCH ×4 (01:13→22:26)
[2016-12-14] MEDS: PROTONIX IV SCH (01:13)
[2016-12-14 08:27] LABS: BASO% 0.5 % (0.0-0.8); EOS# 0.54 X1000 (0.0-0.7); EOS% 2.7 % (0.0-10.0); HEMATOCRIT 34.3 % (37.0-47.0); HEMOGLOBIN 11.3 g/dL (12.0-16.0); IMM GRAN# 0.92 X1000 (0.0-0.04); IMM GRAN% 4.6 % (0.0-0.5); LYMPH# 1.63 X1000 (1.2-3.4); LYMPH% 8.2 % (20.5-51.1); MANUAL DIFF NEEDED? YES; MCH 29.5 PG (27-31); MCHC 32.9 g/dL (33-37); MCV 89.6 FL (81-99); MONO% 11.5 % (1.7-9.3); MPV 11.7 FL (7.4-10.4); NEUT% 72.5 % (42.2-75.2); PLT 271 X1000 (130-400); RBC 3.83 XMIL (4.2-5.4)
[2016-12-14 09:12] LABS: AGAP 12; BUN 8 mg/dL (8-22); CALCIUM 7.7 mg/dL (8.8-10.2); CHLORIDE 111 mmol/L (98-107); COSMO 285; POTASSIUM 3.3 mmol/L (3.5-5.1); SODIUM 144 mmol/L (136-145); TCO2 21 mmol/L (25-35)
[2016-12-14] MEDS: ZOFRAN IV PRN (10:29)
--- NOTE | 2016-12-14 10:51 | PROGRESS NOTE ---
DATE: 12/14/2016 SUBJECTIVE: No real pain. She was on the phone this morning. No nausea. No vomiting. I have reviewed her vital signs. No fevers overnight. No tachycardia. OBJECTIVE: General Appearance: She is alert. Abdomen: Soft, nontender. Drains in place with minimal purulent appearing output. LABS: White count 719, hematocrit 34, creatinine 0.7. ASSESSMENT/PLAN: A 56-year-old female with perforated diverticulitis. Clinically, she looks well. Her white counts are slowly coming down. I will continue her IV antibiotics and her drain for now. If her white count was not continue to fall, she will need a repeat CT scan to evaluate for fluid collection, but will monitor for now. Dr. Unger has given her a diet. We will monitor this, but if she develops any change in her clinical condition or pain, may need back this off. cc: Alonzo Howard MD MTDD
[2016-12-14 11:18] LABS: BANDS 8 % (0-1); LYMPHS 10 % (21-51); MONO 8 % (1-9)
[2016-12-14] MEDS: ZOSYN 3.375 GM/NS 3.375 GM/50 ML IVPB IV SCH ×2 (12:35→17:57)
[2016-12-14] MEDS: PERCOCET-5 PO PRN ×2 (15:10→22:24)
--- NOTE | 2016-12-14 15:10 | PROGRESS NOTE ---
DATE: 12/14/2016 SUBJECTIVE: Patient reports feeling fine. No fever or chills reported. OBJECTIVE: Vital Signs: Temperature 97.5 degrees, heart rate 83, respiratory 17, blood pressure 127/87, O2 saturation 99% on room air. General examination: This is a 56-year-old, female sitting in the chair, in no acute distress. HEENT: Head is normocephalic, atraumatic. Neck: Supple. No JVD noted. No carotid bruits. Cardiovascular: S1, S2 heard. No murmurs, gallops, or rubs. Regular rate and rhythm. Respiratory: Clear bilaterally to auscultation. No work of breathing or using accessory muscles. Abdomen: Soft, nontender to palpation. Bowel sounds present. No organomegaly. Extremities: No clubbing, cyanosis, or edema. Peripheral pulses present in both legs. Neurological: Patient is alert and oriented x3. Moves 4 extremities. Cranial nerves 2-12 grossly normal. LABORATORY DATA: White cell count is 19.94. ASSESSMENT AND PLAN: 1. Acute diverticulitis. 2. Sigmoid abscess status post CT-guided percutaneous drainage. PLAN: Patient had diverticulitis and abscess was identified and drained 3 days ago. Unfortunately, the white cell count after we placed the drainage catheter was going up and today it is almost basically the same. So we decided to do another CT scan which basically shows it is still the abscess that is presently there and also there are some small abscesses growing in the pelvic area. At this point, we will wait for evaluation from General Surgery and also we are going to add meropenem to her current treatment to optimized antibiotic therapy. She is feeling fine clinically with no signs of peritoneal irritation in the abdominal examination. We will continue with the same management. Will see what General Surgery has to say. cc: Vince Barroso MD
--- NOTE | 2016-12-14 15:15 | Diag Imaging Result Document ---
PROCEDURE NAME: ABDOMEN/PELVIS W/WO CONTRAST - 12/14/2016 CT ABDOMEN WITH AND WITHOUT INTRAVENOUS CONTRAST: TECHNIQUE: Dose reduction protocol. FINDINGS: Noncontrasted images performed. No renal stones. No hydronephrosis. There are small pleural effusions with basilar atelectasis. Postcontrasted images performed. There is a moderate amount of free air within the anterior abdomen and pelvis. This has not decreased compared to the prior exam. There is fatty infiltration of the liver. The spleen is not enlarged. The gallbladder is distended. No adjacent inflammation. Normal pancreas and adrenal glands. No solid renal masses. No hydronephrosis. The abscess drain in the right lower quadrant has been pulled back with the pigtail portion actually in the subcutaneous tissues. There is a small fluid collection adjacent to the cecum with several fluid collections in the midpelvis as well. The fluid collections in the pelvis are more prominent than on the prior exam. The uterus has been removed. The urinary bladder is not distended. There are small pelvic lymph nodes. IMPRESSION: 1. The drainage catheter in the right lower quadrant is malpositioned with the tip coiled in the subcutaneous tissues. 2. Persistent pneumoperitoneum. 3. Development of several fluid collections in the midpelvis which may represent developing abscesses. The results were called to Dr. Crapenter at 2:11 p.m.
[2016-12-14] MEDS: MERREM 1 GM in NS 50 ML IV SCH ×2 (17:56→22:26)
[2016-12-15] MEDS: PROTONIX IV SCH ×2 (00:06→22:38)
[2016-12-15] MEDS: ZOSYN 3.375 GM/NS 3.375 GM/50 ML IVPB IV SCH ×5 (00:06→17:24)
[2016-12-15] MEDS: SODIUM CHLORIDE 0.9% INJ SCH ×2 (00:07→22:38)
[2016-12-15] MEDS: MORPHINE IV PRN ×5 (00:10→22:37)
[2016-12-15] MEDS: TORADOL IV SCH (03:42)
[2016-12-15 05:55] LABS: EOS# 0.56 X1000 (0.0-0.7); EOS% 3.1 % (0.0-10.0); HEMATOCRIT 29.6 % (37.0-47.0); HEMOGLOBIN 9.9 g/dL (12.0-16.0); IMM GRAN# 0.92 X1000 (0.0-0.04); LYMPH# 1.55 X1000 (1.2-3.4); LYMPH% 8.5 % (20.5-51.1); MANUAL DIFF NEEDED? YES; MCHC 33.4 g/dL (33-37); MCV 89.7 FL (81-99); MONO# 1.87 X1000 (0.11-0.59); MONO% 10.2 % (1.7-9.3); MPV 10.5 FL (7.4-10.4); NEUT% 72.2 % (42.2-75.2); PLT 270 X1000 (130-400)
[2016-12-15 06:02] LABS: BANDS 8 % (0-1); EOS 2 % (1-10); LYMPHS 10 % (21-51); MONO 8 % (1-9)
[2016-12-15] MEDS: NS 1,000 ML IV SCH ×2 (06:03→06:11)
[2016-12-15 06:07] LABS: AGAP 21; BUN 6 mg/dL (8-22); CHLORIDE 111 mmol/L (98-107); COSMO 299; POTASSIUM 2.8 mmol/L (3.5-5.1); SODIUM 152 mmol/L (136-145); TCO2 20 mmol/L (25-35)
[2016-12-15] MEDS: PERCOCET-5 PO PRN ×2 (06:11→17:23)
[2016-12-15] MEDS: MERREM 1 GM in NS 50 ML IV SCH ×3 (06:11→22:37)
[2016-12-15] MEDS ORDERED: D5 1/2 NS + KCL 30 MEQ 1,000 ML IV SCH (08:23)
[2016-12-15] MEDS: D5W 1,000 ML IV SCH (14:02)
--- NOTE | 2016-12-15 14:59 | PROGRESS NOTE ---
DATE: 12/15/2016 SUBJECTIVE: Patient reports feeling fine. No fever or chills. OBJECTIVE: Vital Signs: Temperature 98.3 degrees, heart rate 81, respiratory rate 18, blood pressure 119/67, O2 saturation 100% on room air. General examination: This is a 56-year-old female, sitting in the chair, in no acute distress. HEENT: Head is normocephalic, atraumatic. Anicteric sclerae and pale conjunctivae. Mucous membranes moist. Neck: Supple. No JVD noted. No carotid bruits. No lymphadenopathy. No thyromegaly. Cardiovascular: S1, S2 heard. No murmurs, gallops, or rubs. Regular rate and rhythm. Respiratory: Clear bilaterally to auscultation. No work of breathing or using accessory muscles. Abdomen: Soft, nontender to palpation. Bowel sounds present. No organomegaly. Drainage catheter has been removed from the right side of the abdomen. Extremities: No clubbing, cyanosis, or edema. Peripheral pulses present in both legs. Neurological: Patient is alert and oriented x3. Able to move 4 extremities. LABORATORY DATA: White cell count today is . ASSESSMENT: 1. Acute diverticulitis. 2. Inguinal abscess status post CT-guided percutaneous drainage. 3. Pneumoperitoneum. PLAN: Patient has been evaluated by surgery and they think this patient is improving so this draining catheter has been removed. At this time we are going to continue with IV antibiotics, both meropenem and Zosyn. According to surgery those small pelvic abscesses can resolved with medical treatment. cc: Vince Barroso MD
--- NOTE | 2016-12-15 15:15 | PROGRESS NOTE ---
DATE: 12/15/2016 SUBJECTIVE: No real pain. She has tolerated some p.o. OBJECTIVE: Vital signs: No fevers overnight. Temperature 98.3, pulse 81, blood pressure 119/67, oxygen saturation 100% on room air. Abdomen: Soft, nontender, nondistended. Drain is in place. There is no erythema around the drain. There are only scant amounts of fluid in the drain. LABS: White count is down to 18, hematocrit 29. Her sodium is high at 152. Potassium low at 2.8. Her creatinine 0.6. Glucose is 87. ASSESSMENT AND PLAN: This is a 56-year-old female with perforated diverticulitis and abscess. She was rescanned yesterday by the medicine doctors and her drain appears to be dislodged in the abdominal wall. I removed this at the bedside without complication. She has 2 small fluid collections adjacent to this that I suspect may be amenable to percutaneous drainage but she is gradually improving clinically and she has no signs of peritonitis. We will continue her IV antibiotics and treatment of the intraabdominal abscess and re-engage in intervention radiology for possible percutaneous drain tomorrow. I think given how stable and improving she is clinically we will hold off any surgical intervention but I did talk to the patient that if she required operation she would require end-colostomy and that is what we are hoping to avoid. She is on adequate antibiotics. Will continue to follow along. cc: Alonzo Howard MD
[2016-12-15] MEDS: ZOFRAN IV PRN (20:29)
[2016-12-16] MEDS: ZOSYN 3.375 GM/NS 3.375 GM/50 ML IVPB IV SCH ×2 (00:54→04:17)
[2016-12-16] MEDS: PROTONIX IV SCH (00:55)
[2016-12-16] MEDS: PERCOCET-5 PO PRN ×3 (01:53→23:24)
[2016-12-16] MEDS: D5W 1,000 ML IV SCH (01:53)
[2016-12-16] MEDS: MORPHINE IV PRN (04:17)
[2016-12-16] MEDS ORDERED: BENADRYL PO ONE (04:23)
[2016-12-16 05:58] LABS: BASO% 0.5 % (0.0-0.8); EOS# 0.42 X1000 (0.0-0.7); EOS% 1.9 % (0.0-10.0); IMM GRAN# 0.95 X1000 (0.0-0.04); IMM GRAN% 4.3 % (0.0-0.5); LYMPH# 1.99 X1000 (1.2-3.4); MANUAL DIFF NEEDED? YES; MCH 29.8 PG (27-31); MCHC 33.3 g/dL (33-37); MCV 89.3 FL (81-99); MONO# 2.05 X1000 (0.11-0.59); MONO% 9.3 % (1.7-9.3); MPV 10.8 FL (7.4-10.4); PLT 367 X1000 (130-400); RBC 4.03 XMIL (4.2-5.4)
[2016-12-16 06:07] LABS: AGAP 13; BUN 4 mg/dL (8-22); CALCIUM 7.8 mg/dL (8.8-10.2); CHLORIDE 105 mmol/L (98-107); COSMO 279; POTASSIUM 3.1 mmol/L (3.5-5.1); SODIUM 141 mmol/L (136-145); TCO2 23 mmol/L (25-35)
[2016-12-16] MEDS: MERREM 1 GM in NS 50 ML IV SCH (06:15)
[2016-12-16 06:22] LABS: BANDS 8 % (0-1); LYMPHS 12 % (21-51); MONO 8 % (1-9)
--- NOTE | 2016-12-16 06:43 | PROGRESS NOTE ---
DATE: 12/16/2016 SUBJECTIVE: Patient tolerating p.o., no real pain. OBJECTIVE: Vital Signs: Patient is currently afebrile. Her vital signs are stable. General: No acute distress. Cardiovascular: Regular rate and rhythm. Lungs: Grossly clear. Abdomen: Soft, obese, but essentially no peritoneal signs. She does have some mild periumbilical discomfort, but again significantly better than previous. LABORATORY: White blood cell count 22. CT scan from this weekend reviewed. ASSESSMENT AND PLAN: A 56-year-old female with perforated diverticulitis with abscess. 1. Perforated diverticulitis. At this time, patient's CT-guided drain was removed yesterday because it was already malpositioned. She does have 2 abscesses, and given her increased leukocytosis, we will ask radiology to place another drain. She does have Pseudomonas growing which is an abnormal colonic bacteria. It appears to be pansensitive, but she is on meropenem and Zosyn and she still has a leukocytosis. Therefore, we will ask infectious disease for an opinion. We will consult Dr. Alfredo. At this time, given her overall clinical picture improvement despite her leukocytosis, I think we can continue her on antibiotics with CT- guided drainage. If her clinical picture seems to change, may consider surgical intervention but at this time, she appears stable. cc: Byron Unger MD
[2016-12-16] MEDS: ZOSYN 4.5 GM/NS 4.5 GM/100 ML IVPB IV SCH ×3 (09:26→20:30)
[2016-12-16] MEDS ORDERED: POTASSIUM CHLORIDE 60 MEQ in NS 500 ML IV ONE (10:00)
[2016-12-16] MEDS: NS 1,000 ML IV SCH (10:15)
--- NOTE | 2016-12-16 10:41 | CONSULTATION ---
DATE OF CONSULTATION: 12/16/2016 CONCLUSION: The patient has a pericecal Pseudomonas abscess which is felt to be most likely secondary to a perforated diverticulitis. The patient continues to have an increase in her white count even though clinically she is doing better. I think part of this may be due the fact that the original drain that was put in ceased to get all of the abscess drained. Then 2 other smaller abscesses formed as a result. Also, the patient is quite obese and it may be that the dose of the Zosyn that she is on now and the dose of meropenem are not enough to completely clear the abscesses. RECOMMENDATIONS: It is my understanding that the patient is going back down to radiology today to have another drain put in. I have discontinued meropenem and have increased the dose of Zosyn to 4.5 g IV every 6 hours. DISCUSSION: The patient initially came in to the hospital with abdominal pain. She also had some vomiting and diarrhea which have cleared. She was having a fever also. She had a drain placed and the culture from the drainage grew a pure culture of Pseudomonas which was susceptible to all the drugs tested. Clinically, the patient has been getting better. However, her white count has increased and today it is 22,130. Hemoglobin 12 and platelet count 367,000. The creatinine is 0.5. CT scan shows a malpositioned drainage catheter. There were several fluid collections. There was on the initial CAT scan a pericecal abscess, most likely secondary to diverticula. 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 She has had a hysterectomy and bilateral salpingo-oophorectomy. REVIEW OF SYSTEMS: Eyes and Ears: The patient wears glasses. Her hearing is normal. Neck: No stiffness. Respiratory: No cough or shortness of breath. Cardiovascular: No chest pain or palpitations. GI: See above. The patient did initially have some vomiting and diarrhea. She also had abdominal pain but all these are better. Genitourinary: No dysuria or flank pain. Endocrine: The patient does not have diabetes or thyroid disease. Neurologic: No seizures. No motor or sensory loss. Hematologic: No anemia or bleeding tendency. PREVIOUS HOSPITALIZATIONS AND OPERATIONS: She has had a hysterectomy and bilateral salpingo- oophorectomy, tonsillectomy, and extraction of all of her teeth. MEDICAL DISEASES: Positive for obesity, hyperlipidemia, and diverticulosis. It is felt that the patient had diverticulitis and 1 of the diverticula perforated. INFECTIOUS DISEASE HISTORY: Positive for pneumonia. Negative for UTI. FAMILY HISTORY: Positive for diabetes mellitus, hypertension, myocardial infarction, and cancer. SOCIAL HISTORY: [place] She stopped smoking cigarettes 6 years ago. She infrequently drinks alcoholic beverages. She does not abuse drugs. She is . She has dogs for pets. She works at [employer]. ALLERGIES: She is allergic to Lorabid and Lortab. HOME MEDICATIONS: Home medications include Prilosec and aspirin. She does not take anything for elevated cholesterol. PHYSICAL EXAMINATION: Vital Signs: Temperature is 98.3 degrees, pulse 81, respirations 18, blood pressure 129/64. Patient's weight is 234 pounds. Generally: This is an obese, middle-aged female in no acute distress. Head, Eyes, Ears, Nose, and Throat: The patient is edentulous. She can hear my spoken words. She can see near objects. Neck: No meningismus. Lungs: Clear to auscultation. Cardiovascular: Heart rate is regular. The patient has bilateral leg edema. It is difficult for me to feel peripheral pulses because of her edema. Abdomen: Soft and nontender. There is a small area where the previous drain was. The site is not erythematous or draining. Neurologic: Patient is alert. She can move her extremities. There is no tremor. Her sensation is intact to touch. Her memory, as regarding her medical history was intact. Integument: No rash noted. Thank you for the consult. cc: Delta Alfredo MD
--- NOTE | 2016-12-16 12:17 | PROGRESS NOTE ---
DATE: 12/16/2016 SUBJECTIVE: Patient reports feeling fine. Denies fever or chills. Denies more abdominal pain. OBJECTIVE: Vital Signs: Temperature 97.7 degrees, heart rate 82, respiratory rate 20, blood pressure 130/74, O2 saturation 97% on room air. General Examination: This is on 56-year-old, female sitting in the chair, in no acute distress. HEENT: Head is normocephalic and atraumatic. Anicteric sclerae and pale conjunctivae. Neck: Supple. No JVD noted. No carotid bruits. No lymphadenopathy. Cardiovascular Examination: S1 and S2 heard. No murmurs, gallops, or rubs. Regular rate and rhythm. Respiratory Examination: Clear bilaterally to auscultation. No work of breathing or using accessory muscles. Abdomen: Soft, nontender to palpation. Bowel sounds present. No organomegaly. Extremities: No clubbing, cyanosis, or edema. Peripheral pulses present in both legs. Neurological Examination: Patient is alert and oriented x3. Moves 4 extremities. Laboratory Data: White cell count 22.13, hemoglobin 10, hematocrit 36, platelets 367,000. BMP unremarkable except potassium 3.1. ASSESSMENT: 1. Acute diverticulitis, sigmoid abscess, status post CT-guided percutaneous drainage. 2. Pneumoperitoneum. 3. Pelvic abscess. PLAN: The patient has been admitted to the hospital for sigmoid diverticulitis with pneumoperitoneum. Patient started on antibiotics and started to improve. She was consulted by surgery. This patient will need a CT drainage of this abscess located in the sigmoid colon. Since then, the white cell count started going up. B side being on 2 antibiotics, the white cell count is still high. Today, he was evaluated by Dr. Unger. He thinks that this patient will be benefitted from placing catheters in the other assess present in the pelvic area. Dr. Alfredo has been consulted for management of antibiotics. He recommends to increase the doses of Zosyn because of the obesity on this patient and stop meropenem. We will follow recommendations. cc: Vince Barroso MD
[2016-12-16] MEDS: ZOFRAN IV PRN (12:31)
[2016-12-16] MEDS: BENADRYL IV PRN ×2 (13:34→20:30)
--- NOTE | 2016-12-16 17:31 | Diag Imaging Result Document ---
PROCEDURE NAME: CT GUIDE ABD DRAINAGE W/CATH - 12/16/2016 BILATERAL PERCUTANEOUS ABSCESS DRAINAGE IN THE PELVIS: FINDINGS: There are 2 fluid collections seen on the formulation technician series in the anterior pelvis on either side. One of these had been previously drained on 12/11/2016 on the right side. This drain had come out at this point. The benefits and risks were discussed with the patient and her , including the possibility of bleeding, infection, or inadvertent puncture of hollow viscus. They agreed. Subsequently, the patient was placed on the CT table and following localization of the fluid collections, the skin was sterilely prepped and 1% lidocaine was administered to the skin and deeper soft tissues over the right side. A 10-Sammarinese pigtail catheter was inserted by trochar technique subsequently into the left-sided collection. This produces copious drainage of purulent- appearing yellowish-brown material. Following the drainage, the collection is completely decompressed. Subsequently, additional 10-Sammarinese catheter was replaced in the right-sided collection after sterile preparation of the skin and administration of 1% lidocaine to the skin and deeper soft tissues. Produced a drainage of a more serous-appearing yellowish fluid. Both catheters were secured to the skin with adhesive disk and the internal self-retaining suture. In addition, the right-sided tube was also secured with a suture in the skin. IMPRESSION: Successful placement of bilateral abscess drainage catheters in the pelvis as described.
[2016-12-17] MEDS: NS 1,000 ML IV SCH ×2 (00:47→15:05)
[2016-12-17] MEDS: PROTONIX IV SCH (00:48)
[2016-12-17] MEDS: SODIUM CHLORIDE 0.9% INJ SCH (00:48)
[2016-12-17] MEDS: ZOSYN 4.5 GM/NS 4.5 GM/100 ML IVPB IV SCH ×4 (03:10→21:20)
[2016-12-17] MEDS: BENADRYL IV PRN ×2 (05:02→18:35)
[2016-12-17 05:46] LABS: BASO% 0.5 % (0.0-0.8); EOS# 0.63 X1000 (0.0-0.7); EOS% 3.5 % (0.0-10.0); HEMATOCRIT 30.7 % (37.0-47.0); HEMOGLOBIN 9.9 g/dL (12.0-16.0); IMM GRAN# 0.78 X1000 (0.0-0.04); IMM GRAN% 4.3 % (0.0-0.5); LYMPH# 2.18 X1000 (1.2-3.4); MANUAL DIFF NEEDED? YES; MCH 29.3 PG (27-31); MCHC 32.2 g/dL (33-37); MCV 90.8 FL (81-99); MONO# 1.32 X1000 (0.11-0.59); MONO% 7.2 % (1.7-9.3); MPV 11.1 FL (7.4-10.4); NEUT% 72.5 % (42.2-75.2); PLT 362 X1000 (130-400); RBC 3.38 XMIL (4.2-5.4)
--- NOTE | 2016-12-17 06:03 | PROGRESS NOTE ---
DATE: 12/17/2016 SUBJECTIVE: The patient is doing well. Had 2 drains placed by [facility]. She is hurting somewhat from those, but otherwise she is feeling better than admission. OBJECTIVE: Vital Signs: Patient is currently afebrile. Her vital signs are stable. General: No acute distress. Cardiovascular: Regular rate and rhythm. Lungs: Grossly clear. Abdomen: Soft, obese, but essentially no peritoneal signs. Some tenderness around her drains. LABORATORY: White blood cell count is 18, hematocrit is 30, platelets 362,000. CT scan from drainage reviewed. ASSESSMENT AND PLAN: A 56-year-old, female with perforated diverticulitis with abscess. Perforated diverticulitis. At this time, patient is status post replacement of CT-guided drains. Her white blood cell count is down to 18. We have increased her Zosyn per recommendation by Dr. Alfredo. Her white blood cell count has responded appropriately. She has been afebrile. I suspect if she continues down this route, we can transition her over to p.o. antibiotics and remove these drains in the near future. Overall, I think her clinical status is improving. We will continue to follow. cc: Byron Unger MD
[2016-12-17 06:06] LABS: AGAP 12; BUN 3 mg/dL (8-22); CALCIUM 7.9 mg/dL (8.8-10.2); CHLORIDE 108 mmol/L (98-107); COSMO 285; POTASSIUM 3.2 mmol/L (3.5-5.1); SODIUM 145 mmol/L (136-145); TCO2 25 mmol/L (25-35)
[2016-12-17 07:03] LABS: BANDS 8 % (0-1); EOS 2 % (1-10); HYPOCHROM 1+; LYMPHS 10 % (21-51); MONO 6 % (1-9)
[2016-12-17] MEDS ORDERED: POTASSIUM CHLORIDE 40 MEQ/SWI 40 MEQ/100 ML IVPB IV ONE (08:34)
--- NOTE | 2016-12-17 09:00 | PROGRESS NOTE ---
DATE: 12/17/2016 PRESENT ILLNESS: The patient had drains replaced yesterday for a Pseudomonas abscess which is felt to be secondary to perforated diverticulitis. The patient also is receiving Zosyn. MEDICATIONS: As mentioned above, the patient is receiving Zosyn in an increased dose. PHYSICAL EXAMINATION: Vital Signs: Temperature is 98.2 degrees, pulse 79, respirations 18, blood pressure 128/61. General: This is an obese middle-aged female. She is in no acute distress. Lungs clear to auscultation. Cardiovascular: Regular heart rate. Abdomen is soft. She has bilateral drains in place. Extremities: The patient has a PICC present in her right arm. The PICC site is not swollen or red. LABORATORY DATA AND X-RAY: Today, the CBC shows a white count of 18,240. Hemoglobin 9.9, and platelet count 362,000. Creatinine 0.5. GFR is greater than 60. There is no new radiographic study. ASSESSMENT AND PLAN: As mentioned above, the patient has a Pseudomonas abscess for now. She also has had 2 drains that have been placed. For now, we will continue Zosyn. If the patient continues to improve, I agree with Dr. Tolbert that she could go home and take Levaquin by mouth to which the Pseudomonas organism is susceptible to. The patient's comorbidities include obesity and diverticulosis which was felt to have progressed to diverticulitis and was the cause of a perforated diverticulum. cc: Delta Alfredo MD
[2016-12-17] MEDS: PERCOCET-5 PO PRN ×2 (09:18→18:28)
[2016-12-17] MEDS: MORPHINE IV PRN ×2 (10:54→21:21)
--- NOTE | 2016-12-17 14:12 | PROGRESS NOTE ---
DATE: 12/17/2016 SUBJECTIVE: This patient states that she is feeling better, she is still complaining of abdominal discomfort. She denies fever or chills. She is tolerating p.o. Urine output has been good. Yesterday, she had a CT-guided percutaneous drainage that is working just fine. OBJECTIVE: Vital Signs: Temperature 98.2, pulse 79, respiratory rate 18, blood pressure 128/61, oxygen saturation 97% on room air. HEENT: Head normocephalic. No trauma. PERRLA. Neck: Supple. No JVD. No masses. Central trachea. Chest: Clear to auscultation. No wheezing. No rales. Abdomen: Soft. Generalized tenderness to palpation. No rebound. She has 2 catheters coming out from the left and right lower abdominal area. It is draining a yellowish material. Positive but decreased bowel sounds. Extremities: Trace edema. No clubbing. No cyanosis. Neurological: The patient is alert and oriented x3. No focal neurological deficits. LABORATORY: WBC 18.2, hemoglobin 9.9, hematocrit 30.7, platelet 362. Bands 8, sodium 145, potassium 3.2, chloride 108. Bicarbonate 25, BUN 3, creatinine 0.5. Glucose 90, calcium 7.9. ASSESSMENT AND PLAN: 1. Perforated diverticulitis, status post replacement of percutaneous drainage, CT-guided. This is working good, this patient is feeling much better. We will continue with the antibiotics and drainage. Surgery department is following this patient. 2. Pneumoperitoneum. Will monitor. 3. Pelvic abscess, continue with the same management. 4. Gastroesophageal reflux disease. Continue with Protonix IV q.24 hours. 5. Obesity, aware. 6. Physical deconditioning. I have requested physical therapy evaluation, to perform range of motion and movement on the bed for now. Hopefully, tomorrow or in a couple days, she is going to be able to move a little bit more. cc: Devonte Boyce MD
--- NOTE | 2016-12-17 16:13 | ED EKG INTERP ---
This chart was entered by Jaylan Sanchez Scribe, acting as scribe for Alexi Morrison MD. EKG Interpretation - EKG Time of EKG reading by physician:: 00:04 EKG Read and Signed by:: Alexi Morrison EKG Interpretation (*Must complete 3 of following elements*): Normal Rate: 85 Rhythm: NSR This chart was documented by the indicated scribe, (Jaylan Sanchez Scribe) and accurately reflects the services I performed and decisions made by mePrince Robert H., MD, as attested by the provider's signature.
[2016-12-18] MEDS: PERCOCET-5 PO PRN ×2 (00:37→22:07)
[2016-12-18] MEDS: SODIUM CHLORIDE 0.9% INJ SCH ×2 (00:37→23:55)
[2016-12-18] MEDS: PROTONIX IV SCH ×2 (00:37→23:55)
[2016-12-18] MEDS: ZOSYN 4.5 GM/NS 4.5 GM/100 ML IVPB IV SCH ×4 (04:08→22:07)
[2016-12-18] MEDS: NS 1,000 ML IV SCH ×2 (04:09→11:08)
[2016-12-18 05:49] LABS: BASO% 0.3 % (0.0-0.8); EOS# 0.44 X1000 (0.0-0.7); EOS% 2.8 % (0.0-10.0); HEMATOCRIT 33.6 % (37.0-47.0); HEMOGLOBIN 10.8 g/dL (12.0-16.0); IMM GRAN# 0.39 X1000 (0.0-0.04); IMM GRAN% 2.5 % (0.0-0.5); LYMPH# 2.06 X1000 (1.2-3.4); MANUAL DIFF NEEDED? YES; MCH 29.3 PG (27-31); MCHC 32.1 g/dL (33-37); MCV 91.1 FL (81-99); MONO# 1.15 X1000 (0.11-0.59); MONO% 7.3 % (1.7-9.3); MPV 10.7 FL (7.4-10.4); NEUT% 74.1 % (42.2-75.2); PLT 375 X1000 (130-400); RBC 3.69 XMIL (4.2-5.4)
[2016-12-18 06:00] LABS: AGAP 11; BUN 3 mg/dL (8-22); CALCIUM 7.5 mg/dL (8.8-10.2); CHLORIDE 107 mmol/L (98-107); COSMO 284; POTASSIUM 3.7 mmol/L (3.5-5.1); SODIUM 145 mmol/L (136-145); TCO2 27 mmol/L (25-35)
--- NOTE | 2016-12-18 06:16 | PROGRESS NOTE ---
DATE: 12/18/2016 SUBJECTIVE: Patient doing well. No major issues. OBJECTIVE: Vital Signs: Patient is currently afebrile. Her vital signs are stable. General: No acute distress. Cardiovascular: Regular rate and rhythm. Lungs: Grossly clear. Abdomen: Soft, obese, but essentially nontender at this point, except for over her drains. Her drain output has been minimal. LABORATORY STUDIES: Currently pending. ASSESSMENT AND PLAN: A 56-year-old female with a perforated diverticulitis, with abscess. Perforated diverticulitis. At this time, the patient is clinically doing well. Her labs are pending this morning, but suspect that as they continue to trend down, she can be transitioned over to p.o. antibiotics here soon. Overall, her clinical picture is improving. If her white blood cell count continues to trend down, may consider removing her drains in the near future. cc: Byron Unger MD
[2016-12-18 06:28] LABS: BANDS 12 % (0-1); LYMPHS 16 % (21-51); MONO 6 % (1-9)
[2016-12-18] MEDS: MORPHINE IV PRN ×3 (07:24→16:36)
--- NOTE | 2016-12-18 10:55 | PROGRESS NOTE ---
DATE: 12/18/2016 SUBJECTIVE: This patient states that she is feeling better. She is still complaining of abdominal discomfort. No fever, no chills. She is tolerating p.o. Urine output is good. Two days ago she had a CT guided percutaneous drainage that works, but that is working fine. OBJECTIVE: Vital Signs: Temperature 98.4 degrees, pulse 77, respiratory rate 18, blood pressure 141/71, oxygen saturation 97% on room air. HEENT: Head normocephalic. No trauma. Pupils equal, round, and reactive to light and accommodation. Neck: Supple. No jugular venous distention. No masses. Central trachea. Chest: Clear to auscultation. No wheezing. No rales. Abdomen: Soft. Generalized tenderness to palpation. No rebound. She has 2 drains coming out from the right and lower abdominal area. It is draining yellowish material. Positive, but decreased bowel sounds. Extremities: Trace edema. No clubbing. No cyanosis. Neurological Examination: The patient is alert and oriented x3. No focal neurological deficits. LABORATORY: WBC 15.8, hemoglobin 10.8, hematocrit 33.6, platelets 375,000. Sodium 145, potassium 3.7, chloride 107, bicarbonate 27. BUN 3, creatinine 0.5, glucose 79, calcium 7.5. ASSESSMENT AND PLAN: 1. Perforated diverticulitis, status post placement all percutaneous drainage, CT-guided. This is working good. This patient is feeling much better. We will continue with the antibiotics. WBC is trending down. 2. Pneumoperitoneum. Will monitor. 3. Pelvic abscess. Continue with the same management. 4. Gastroesophageal reflux disease. Continue with Protonix IV q.24 hours. 5. Obesity, aware. 6. Physical deconditioning. Continue with physical therapy. cc: Devonte Boyce MD
--- NOTE | 2016-12-18 16:38 | PROGRESS NOTE ---
DATE: 12/18/2016 PRESENT ILLNESS: The patient has a Pseudomonas abscess secondary to perforated diverticulitis. MEDICATIONS: Patient is on Zosyn in a dose of 4.5 g IV every 6 hours. PHYSICAL EXAMINATION: Vital Signs: Temperature is 98.5 degrees, pulse 84, respirations 18, blood pressure 129/64. General: This is an obese, somewhat ill-appearing, middle-aged female. She is in no acute distress. Lungs: Clear to auscultation. Cardiovascular: Regular heart rate. Abdomen: Soft and nontender. Two drains are in place. Neurologic: Patient is alert. She can move her extremities. There is no tremor. LABORATORY AND X-RAY: The CBC for today shows a white count of 15,830, hemoglobin 10.8, and platelet count 375,000. Creatinine 0.5. GFR is greater than 60. There is no new radiographic study today. ASSESSMENT AND PLAN: 1. The patient has a Pseudomonas abscess from a diverticulitis. The plan is to send the patient home on p.o. Levaquin. I have through the computer gotten a prescription for Levaquin 500 mg daily for 15 days with 1 refill. My plan would be that when it is okay with the other physicians, we could send her home tomorrow, hopefully without having to keep the drains in place. I plan to see her back in two weeks, at which time I will examine her and also repeat the CT scan. 2. Comorbidities include obesity, diverticulosis which had progressed to diverticulitis. cc: Delta Alfredo MD
[2016-12-19] MEDS: ZOSYN 4.5 GM/NS 4.5 GM/100 ML IVPB IV SCH ×2 (02:23→08:48)
[2016-12-19] MEDS: NS 1,000 ML IV SCH (02:24)
[2016-12-19] MEDS: MORPHINE IV PRN (03:22)
[2016-12-19 05:25] LABS: BASO% 0.6 % (0.0-0.8); EOS# 0.41 X1000 (0.0-0.7); EOS% 2.7 % (0.0-10.0); HEMATOCRIT 33.9 % (37.0-47.0); HEMOGLOBIN 10.9 g/dL (12.0-16.0); IMM GRAN# 0.22 X1000 (0.0-0.04); IMM GRAN% 1.5 % (0.0-0.5); LYMPH# 1.74 X1000 (1.2-3.4); LYMPH% 11.6 % (20.5-51.1); MANUAL DIFF NEEDED? YES; MCH 29.4 PG (27-31); MCHC 32.2 g/dL (33-37); MCV 91.4 FL (81-99); MONO% 6.7 % (1.7-9.3); MPV 10.7 FL (7.4-10.4); NEUT% 76.9 % (42.2-75.2); PLT 367 X1000 (130-400); RBC 3.71 XMIL (4.2-5.4)
[2016-12-19 05:39] LABS: LYMPHS 16 % (21-51); MONO 10 % (1-9)
--- NOTE | 2016-12-19 06:23 | PROGRESS NOTE ---
DATE: 12/19/2016 SUBJECTIVE: Patient doing well. No major issues. OBJECTIVE: Vital Signs: Patient is currently afebrile. Her vital signs are stable. General: No acute distress. Cardiovascular: Regular rate and rhythm. Lungs: Grossly clear. Abdomen: Soft, obese, but essentially nontender at this point, except for at her drains. Her drains had minimal output since placement. I removed them, with some tenderness in the right side after removal, but otherwise no major issues. LABORATORY STUDIES: White blood cell count is 14, which is down from 15. ASSESSMENT AND PLAN: A 56-year-old female with perforated diverticulitis, with an abscess. Perforated diverticulitis. At this time, the patient is clinically improving. Her white blood cell count is trending in the right direction. Her ADDIE drains were removed this morning because those had minimal output since placement. I think at this point, we can potentially discharge her home on p.o. antibiotics if okay with other consulting physicians. She has essentially been stable for the last several days. cc: Byron Unger MD
[2016-12-19 07:25] VITALS: BP 143/71
--- NOTE | 2016-12-19 08:53 | PROGRESS NOTE ---
DATE: 12/19/2016 PRESENT ILLNESS: The patient has a Pseudomonas abdominal abscess secondary to perforated diverticulitis. MEDICATIONS: The patient is currently is on Zosyn in a dose of 4.5 g IV every 6 hours. PHYSICAL EXAMINATION: Vital Signs: Temperature is 98.3 degrees, pulse 82, respirations 18, blood pressure 143/71. Generally, this is a healthy-appearing middle-aged female who is in no acute distress. She would like very much to go home today on oral antibiotics. Lungs clear to auscultation. Cardiovascular: Regular heart rate. Abdomen is soft and nontender. Both drains have been removed earlier by Dr. Unger. Neurologic: The patient is alert. She can move her extremities. There is no tremor. LABORATORY DATA AND X-RAY: The patient's CBC for today shows a white count of 14,990. Hemoglobin 10.9 and platelet count 367,000. The patient does not have a creatinine for today; yesterday, her creatinine was 0.5 with a GFR of greater than 60. ASSESSMENT AND PLAN: The plan is to send the patient home on p.o. Levaquin to treat the Pseudomonas abdominal abscess. I have requested that the patient come to in my office in 2 weeks at which time I will examine her and repeat the CT scan. The patient's comorbidities include obesity and diverticulosis which had apparently progressed to diverticulitis and abscess formation. cc: Delta Alfredo MD
--- NOTE | 2016-12-19 11:41 | DISCHARGE SUMMARY ---
ADMISSION DATE: 12/08/2016 DISCHARGE DATE: 12/19/2016 CONSULTATIONS: 1. Dr. Byron Unger with general surgery. 2. Dr. Delta Alfredo with Infectious Disease. PERTINENT PROCEDURES: 1. Abdomen and pelvis CT showed pneumoperitoneum possibly as a result of perforated sigmoid diverticulum, hepatic steatosis, possible left UPJ stenosis. 2. Renal ultrasound essentially unremarkable. 3. Abdomen and pelvis CT showed persistent pneumoperitoneum apparent pericecal abscess. This is superficial and would be amenable to percutaneous catheter drainage. 4. CT guided cecal abscess drainage performed on 12/11/2016. 5. Abdomen and pelvis CT showed drainage catheter in the right lower quadrant that was malpositioned with the tip coiled in the subcutaneous tissues, persistent pneumoperitoneum, development of several fluid collections in the mid pelvis which may represent developing abscesses. 6. Bilateral percutaneous abscess drainage in the pelvis. DISCHARGE DIAGNOSES: 1. Perforated diverticulitis. The patient's ADDIE drains have been removed. Output has been minimal since placement. She will be discharged on p.o. antibiotics and follow up with Dr. Delta Alfredo in 2 weeks clinically improved. 2. Pseudomonas abscesses from diverticulitis. The patient will be going home on Levaquin p.o. 3. Pneumoperitoneum, aware, stable. 4. Gastroesophageal reflux disease. Continue Proton Pump Inhibitor. 5. Obesity, aware. Patient educated daily on diet and exercise. 6. Physical deconditioning. Patient has worked with physical therapy. She has refused rehab and plans to return home with her . HOSPITAL COURSE: Ms. Moreno is a 56-year-old, female, who carries a past medical history of diverticulitis and GERD who presented to the ED complaining of abdominal pain. She had been feeling nauseated and vomited 3 times, had some diarrhea and severe abdominal pain in the left lower quadrant that was getting worse progressively so she came to the ED. CT of the abdomen initially showed acute diverticulitis and presence of free air so she was admitted for acute diverticulitis, urinary tract infection and started on IV antibiotics as well as IV fluids, and a consultation for general surgery in reference to possible perforated diverticulitis. The patient did not appear septic. She was placed on the appropriate antibiotic coverage. Dr. Unger discussed her options of surgery with a colostomy versus monitoring with antibiotics. She preferred to monitor with antibiotics. She underwent a 2nd abdomen and pelvis CT that did show persistent pneumoperitoneum and apparent pericecal abscesses. She underwent a CT-guided cecal abscess drainage. A follow up abdomen and pelvis showed malposition drainage catheter with a persistent pneumoperitoneum. The patient underwent a 2nd CT guided biopsy and drainage in bilateral pelvic region. Dr. Delta Alfredo was consulted with Infectious Disease secondary to the pericecal Pseudomonas abscesses that was and it was felt to be less likely secondary to perforated diverticulitis. The patient continued to have an elevated white count even though clinically she was getting better. She also had antibiotic adjustments per Dr. Alfredo. Again clinically the patient improved, her white count was trending down. Dr. Unger, along with Dr. Delta Alfredo felt the patient was appropriate for discharge. Her drains had been taken out secondary to her not having much drainage since they were placed. She is being transitioned to p.o. Levaquin. VITAL SIGNS: At time of her discharge, temperature is 98.3 degrees, heart rate 82, respirations 18, blood pressure is 143/71, O2 is 97-94% on room air. DISCHARGE DIET: GI soft. DISCHARGE MEDICATIONS: 1. Aspirin 325 mg p.o. daily. 2. Prilosec 20 mg p.o. daily. 3. Levaquin 500 mg p.o. daily for 15 days. 4. Percocet 5/325, 1 each p.o. q.6 hours p.r.n. FOLLOW-UP: The patient is being discharged home with her . She will continue taking her Levaquin for 15 days. At that time she will follow up with Dr. Delta Alfredo in 2 weeks. She will need to follow up with her primary care physician, Dr. Pernell Healy in 7-10 days, as well as Dr. Byron Unger as indicated. The patient can return to the ED for any worsening of symptoms. DISCHARGE TIME: 30 minutes. Dictated by OMAYRA Monroe for Devonte Boyce MD cc: Devonte Boyce MD
== END 2016-12-19 11:43 | disposition home or self-care (01) ==
LOC: ED 20:00 → SUATTDRO 20:02 → 4N 12-09 00:27 → SUATTDRO 12-09 00:27
PROVIDERS: ATTEND Internal Medicine